=== PATIENT | male | born 1995 | race African-American/Black ===

== ENCOUNTER 2017-01-13 20:17 | Emergency (ER) | payer SELFPAY ==
[~2017-01-13] VITALS: Ht 172.7 cm; Wt 82.0 kg
[2017-01-13 20:21] VITALS: BP 132/82
== END 2017-01-14 03:30 | disposition left against medical advice (07) ==
LOC: ER 20:44
DX: Z53.21 Procedure and treatment not carried out due to patient leaving prior to being seen by health care provider (principal)